=== PATIENT | female | born 1980 | race Hispanic/Latino ===

== ENCOUNTER 2019-07-18 13:25 | Outpatient (AMBR) | payer MEDICAID, SELFPAY ==
--- NOTE | 2019-07-18 14:49 | PT.ODAYNRPT ---
PT Outpatient Daily Note Date of Service: July 18, 2019 OP Daily Note Visit Reasons: low back pain Outpatient Physical Therapy Treatment Date: 07/18/19 Subjective: Her back has been feeling better lately, variable pain level. Went to chiropractor once since last therapy visit. Objective: See F/S for therex MT: Mechanical traction L/S x12' at 20 lbs Assessment: Good response to L/S stab and mechanical traction to relieve LBP. Plan: Continue per POc Length of Time (minutes) of Treatment: 30 Minutes Office Procedures PT Procedures PT Date of Service: 07/18/19 Traction Mechanical: Yes Therapeutic Exercise 15 minutes: Yes
== END 2019-08-07 23:59 | disposition home or self-care (01) ==
PROVIDERS: PCP Nurse Practitioner Family; Referring Provider Nurse Practitioner Family; Visit Provider Nurse Practitioner Family
DX: M54.5 Low back pain (principal); M62.830 Muscle spasm of back
CPT/HCPCS: 97012; 97110